=== PATIENT | female | born 1995 | race Caucasian/White ===

== ENCOUNTER 2016-09-18 20:13 | Emergency (ER) | payer SELFPAY ==
--- NOTE | ~2016-09-18 | ER ---
PATIENT'S NAME: LINDY FERNANDEZ [facility] AGE: 21 Y [address] ROOM: [place] [address] LOCATION: [facility] ADMIT DATE: 09/18/2016 ER/Outpatient Report DISCHARGE DATE: 09/18/2016 FAMILY PHYSICIAN: ALEC MITCHELL ATTENDING PHYSICIAN: Michael Chen Time of Arrival: 2010. Time of Exam: 2010. CHIEF COMPLAINT: Right ankle injury. HISTORY OF PRESENT ILLNESS: The patient states approximately 30 minutes prior to arrival she was playing volleyball, she jumped up and when she came back down, she landed on her right ankle foot area wrong. States it is painful to bear weight, felt a popping sensation, and immediately had swelling and bruising to the area. Denies any other injury. ALLERGIES: NO KNOWN ALLERGIES. MEDICATIONS: No current medications. PAST MEDICAL HISTORY: Benign. PAST SURGICAL HISTORY: Ear tubes as a child. SOCIAL HISTORY: She is a student at [employer]. Denies use of tobacco, drugs, or alcohol. REVIEW OF SYSTEMS: All negative other than those mentioned in the HPI. PHYSICAL EXAMINATION: VITAL SIGNS: She states she is 5 feet 11 inches. Weight was 76 kg. Blood pressure is 150/76, pulse of 114, respirations 16, temp of 98.4, O2 saturation was 95% on room air. GENERAL: She is awake, alert, and oriented x4. SKIN: [place], warm, and dry. RESPIRATIONS: Even and nonlabored. Lung sounds are clear throughout. HEART: Regular rate and rhythm. PATIENT'S NAME: LINDY FERNANDEZ [facility] AGE: 21 Y [address] ROOM: [place] [address] LOCATION: [facility] ADMIT DATE: 09/18/2016 ER/Outpatient Report DISCHARGE DATE: 09/18/2016 FAMILY PHYSICIAN: ALEC MITCHELL ATTENDING PHYSICIAN: Michael Chen EXTREMITIES: Right lateral ankle and right lateral foot are quite swollen and bruised. She has strong pedal pulse. She has good sensation to the tips of her toes. Able to move her toes. Able to move the ankle area, but does have some discomfort. IMAGING DATA: X-ray was completed, reviewed with Dr. Gustavo. The patient has a fracture at the base of the fifth metatarsal of the right foot. IMPRESSION: Fractured right foot. PLAN: The patient was placed in a boot. Crutches were fitted and instructed on use. Prescription was written for [place] for pain. She is to rest, elevate, ice. Wear the boot continuously. Use the crutches with no weightbearing and follow up with an orthopedic doctor within the next 2 to 3 days. She verbalized understanding. ARMANDO MCCANN APRN FOR MD [facility] MCCOY/darcy /[id number] d: 09/19/16 0117 t: 09/24/16 1322, OUTPATIENT REPORT
== END 2016-09-18 20:56 | disposition disaster alternative care site (69) ==
LOC: GACC 20:13
DX: S92.351A Displaced fracture of fifth metatarsal bone, right foot, initial encounter for closed fracture (principal); X58.XXXA Exposure to other specified factors, initial encounter; Y93.68 Activity, volleyball (beach) (court); Y99.8 Other external cause status